=== PATIENT | male | born 1960 | race Caucasian/White ===

== ENCOUNTER 2016-05-28 10:21 | Outpatient (CLI) | payer BC ==
[2016-05-28 11:09] LABS: Hematocrit 38.5 % (42.0-52.0); Mean Platelet Volume 6.6 fL (7.4-10.4); Red Blood Cell (RBC) Count 4.26 mill/uL (4.70-6.10); White Blood Cell (WBC) Count 3.2 thou/uL (4.8-10.8)
[2016-05-28 12:00] LABS: Band 13 % (5-11); Metamyelocyte 4 % (0-0); Neutrophil 39 % (42-75)
== END 2016-05-28 10:22 | disposition home or self-care (01) ==
LOC: BURLAB 10:21
PROVIDERS: ATTEND Internal Medicine Cardiovascular Disease
DX: D72.819 Decreased white blood cell count, unspecified (principal)
CPT/HCPCS: 36415; 85007; 85027

== ENCOUNTER 2016-05-29 10:19 | Outpatient (CLI) | payer BC ==
--- NOTE | 2016-05-29 21:48 | RAD ---
LEFT RIBS 05/29/16 No fracture or area of bony destruction was seen. The ribs appear normal. The adjacent lung is clear . There are no effusions. IMPRESSION: No significant finding. POS: HOME
== END 2016-05-29 10:20 | disposition home or self-care (01) ==
LOC: BURRAD 10:19
PROVIDERS: ATTEND Family Medicine
DX: M94.0 Chondrocostal junction syndrome [Tietze] (principal)

== ENCOUNTER 2016-07-01 08:17 | Outpatient (CLI) | payer BC ==
[2016-07-01 08:48] LABS: Hemoglobin 12.2 g/dL (14.0-18.0); Mean Corpuscular HGB CONC 32.8 g/dL (32.0-36.0); Mean Corpuscular Hemoglobin 29.1 pg (27.0-31.0); Mean Corpuscular Volume 88.6 fl (80.0-94.0); Platelet Count 321 thou/uL (130-400); RBC Distribution Width 11.5 % (11.5-14.5); Red Blood Cell (RBC) Count 4.18 mill/uL (4.70-6.10); White Blood Cell (WBC) Count 5.2 thou/uL (4.8-10.8)
[2016-07-01 09:40] LABS: Eosinophils 11 % (0-10); Lymphocytes 46 % (21-51); MDiff Complete? YES; Monocytes 24 % (0-10); Neutrophil 1 % (42-75); Reactive Lymphocytes 8 % (0-10)
== END 2016-07-01 08:18 | disposition home or self-care (01) ==
LOC: BURLAB 08:17
PROVIDERS: ATTEND Internal Medicine Cardiovascular Disease
DX: D72.819 Decreased white blood cell count, unspecified (principal)
CPT/HCPCS: 36415; 85007; 85027

== ENCOUNTER 2016-07-02 09:20 | Outpatient (CLI) | payer BC ==
[2016-07-02 10:05] LABS: Band 5 % (5-11); Eosinophils 6 % (0-10); Hemoglobin 13.6 g/dL (14.0-18.0); Lymphocytes 44 % (21-51); MDiff Complete? YES; Mean Corpuscular HGB CONC 32.8 g/dL (32.0-36.0); Mean Corpuscular Hemoglobin 29.2 pg (27.0-31.0); Mean Corpuscular Volume 88.9 fl (80.0-94.0); Mean Platelet Volume 6.5 fL (7.4-10.4); Monocytes 19 % (0-10); Neutrophil 16 % (42-75); Platelet Count 366 thou/uL (130-400); RBC Distribution Width 11.5 % (11.5-14.5); Reactive Lymphocytes 10 % (0-10); Red Blood Cell (RBC) Count 4.64 mill/uL (4.70-6.10); White Blood Cell (WBC) Count 11.4 thou/uL (4.8-10.8)
== END 2016-07-02 09:21 | disposition home or self-care (01) ==
LOC: BURLAB 09:20
PROVIDERS: ATTEND Internal Medicine Cardiovascular Disease
DX: D70.9 Neutropenia, unspecified (principal)
CPT/HCPCS: 36415; 85025

== ENCOUNTER 2016-07-08 08:54 | Outpatient (CLI) | payer BC ==
[2016-07-08 09:04] LABS: #Basophils 0.2 thou/uL (0.0-0.2); #Eosinphils 0.5 thou/uL (0.0-0.7); #Lymphocytes 2.2 thou/uL (1.20-3.40); #Monocytes 1.6 thou/uL (0.11-0.59); #Neutrophils 8.3 thou/uL (1.40-6.50); %Basophils 1.9 % (0.0-1.0); %Eosinophils 4.1 % (0.0-10.0); %Lymphocytes 17.4 % (21.0-51.0); %Monocytes 12.3 % (0.0-10.0); %Neutrophils 64.3 % (42.0-75.0); Hemoglobin 13.2 g/dL (14.0-18.0); Mean Corpuscular Hemoglobin 29.6 pg (27.0-31.0); Mean Platelet Volume 7.4 fL (7.4-10.4); Platelet Count 294 thou/uL (130-400); RBC Distribution Width 11.4 % (11.5-14.5); Red Blood Cell (RBC) Count 4.46 mill/uL (4.70-6.10); White Blood Cell (WBC) Count 12.8 thou/uL (4.8-10.8)
== END 2016-07-08 08:55 | disposition home or self-care (01) ==
LOC: BURLAB 08:54
PROVIDERS: ATTEND Internal Medicine Cardiovascular Disease
DX: D70.9 Neutropenia, unspecified (principal)
CPT/HCPCS: 36415; 85025

== ENCOUNTER 2016-07-25 11:00 | Outpatient (CLI) | payer BC ==
[2016-07-25 11:11] LABS: #Basophils 0.2 thou/uL (0.0-0.2); #Eosinphils 0.8 thou/uL (0.0-0.7); #Lymphocytes 1.1 thou/uL (1.20-3.40); #Monocytes 0.9 thou/uL (0.11-0.59); %Basophils 1.8 % (0.0-1.0); %Eosinophils 8.4 % (0.0-10.0); %Lymphocytes 11.4 % (21.0-51.0); %Monocytes 9.1 % (0.0-10.0); %Neutrophils 69.5 % (42.0-75.0); Mean Corpuscular HGB CONC 32.6 g/dL (32.0-36.0); Mean Corpuscular Hemoglobin 29.4 pg (27.0-31.0); Mean Corpuscular Volume 90.1 fl (80.0-94.0); Mean Platelet Volume 7.5 fL (7.4-10.4); Platelet Count 357 thou/uL (130-400); RBC Distribution Width 11.8 % (11.5-14.5); Red Blood Cell (RBC) Count 4.42 mill/uL (4.70-6.10)
== END 2016-07-25 11:01 | disposition home or self-care (01) ==
LOC: BURLAB 11:00
PROVIDERS: ATTEND Internal Medicine Cardiovascular Disease
DX: B02.9 Zoster without complications (principal)
CPT/HCPCS: 36415; 85025

== ENCOUNTER 2016-09-10 11:05 | Outpatient (CLI) | payer BC ==
[2016-09-10 11:17] LABS: #Basophils 0.1 thou/uL (0.0-0.2); #Eosinphils 0.4 thou/uL (0.0-0.7); #Lymphocytes 1.4 thou/uL (1.20-3.40); #Monocytes 0.7 thou/uL (0.11-0.59); #Neutrophils 4.8 thou/uL (1.40-6.50); %Eosinophils 5.2 % (0.0-10.0); %Lymphocytes 19.1 % (21.0-51.0); %Monocytes 9.3 % (0.0-10.0); %Neutrophils 65.3 % (42.0-75.0); Hemoglobin 13.6 g/dL (14.0-18.0); Mean Corpuscular HGB CONC 32.8 g/dL (32.0-36.0); Mean Corpuscular Hemoglobin 28.2 pg (27.0-31.0); Mean Platelet Volume 6.8 fL (7.4-10.4); Platelet Count 317 thou/uL (130-400); RBC Distribution Width 12.8 % (11.5-14.5); Red Blood Cell (RBC) Count 4.82 mill/uL (4.70-6.10); White Blood Cell (WBC) Count 7.4 thou/uL (4.8-10.8)
== END 2016-09-10 11:06 | disposition home or self-care (01) ==
LOC: BURLAB 11:05
PROVIDERS: ATTEND Internal Medicine Cardiovascular Disease
DX: D70.9 Neutropenia, unspecified (principal)
CPT/HCPCS: 36415; 85025

== ENCOUNTER 2016-09-30 09:00 | Outpatient (CLI) | payer BC ==
[2016-09-30 09:54] LABS: Anion Gap 18 mmol/L (10-20); BUN (Urea Nitrogen) 21 mg/dL (8.4-25.7); Calc. Creatinine Clearance 0 mL/min (70-130); Calcium 9.2 mg/dL (7.8-10.44); Carbon Dioxide 22 mmol/L (22-29); Chloride 102 mmol/L (98-107); Estimated GFR-MDRD 48; Glucose 120 mg/dL (70-105); Potassium 4.9 mmol/L (3.5-5.1); Sodium 137 mmol/L (136-145)
== END 2016-09-30 09:01 | disposition home or self-care (01) ==
LOC: BURLAB 09:00
PROVIDERS: ATTEND Internal Medicine Cardiovascular Disease
DX: Z48.812 Encounter for surgical aftercare following surgery on the circulatory system (principal); Z94.1 Heart transplant status
CPT/HCPCS: 36415; 80048; 80197

== ENCOUNTER 2016-10-29 11:27 | Outpatient (CLI) | payer BC | END 2016-10-29 11:28 | disposition home or self-care (01) | LOC: HPCALD 11:27 | PROVIDERS: ATTEND Family Medicine | DX: Z12.5 Encounter for screening for malignant neoplasm of prostate (principal) | CPT/HCPCS: 36415; G0103 ==